=== PATIENT | female | born 1965 | race Caucasian/White ===

== ENCOUNTER 2017-05-25 08:02 | Outpatient (CLI) | payer BC | END 2017-05-25 08:03 | disposition home or self-care (01) | LOC: BICULT 08:02 | PROVIDERS: ATTEND Physician Assistant | DX: R10.11 Right upper quadrant pain (principal); K76.0 Fatty (change of) liver, not elsewhere classified; R16.0 Hepatomegaly, not elsewhere classified | CPT/HCPCS: 76700 ==

== ENCOUNTER 2017-06-26 07:38 | Outpatient (CLI) | payer BC ==
--- NOTE | 2017-06-26 11:47 | NM ---
NUCLEAR MEDICINE HEPATOBILIARY SCAN WITH EJECTION FRACTION: Date: 06/26/17 HISTORY: 51-year-old female with history of right upper quadrant pain, bloating, nausea, and vomiting. FINDINGS: The patient was injected with 5.4 mCi technetium-99m mebrofenin intravenously. There is prompt uptake of the tracer by the liver with excretion into the biliary tree, filling of the gallbladder, and emp tying into the duodenum. At the 1 hour time interval, the patient was given 8 oz of Boost orally. At 30 minutes, ejection fraction was 89%. IMPRESSION: Normal nuclear medicine hepatobiliary scan and normal ejection fraction. POS: [facility]
== END 2017-06-26 07:39 | disposition home or self-care (01) ==
LOC: NM 07:38
PROVIDERS: ATTEND Internal Medicine Gastroenterology
DX: Z12.11 Encounter for screening for malignant neoplasm of colon (principal); K76.0 Fatty (change of) liver, not elsewhere classified; R14.0 Abdominal distension (gaseous); R10.11 Right upper quadrant pain; R11.2 Nausea with vomiting, unspecified; R74.8 Abnormal levels of other serum enzymes
CPT/HCPCS: 78227; A9537

== ENCOUNTER 2017-07-17 07:46 | Outpatient (CLI) | payer BC ==
--- NOTE | 2017-07-17 10:17 | RAD ---
DOUBLE CONTRAST UPPER GI: INDICATION: History of right upper quadrant abdominal pain and hepatic steatosis. TECHNIQUE: Thin barium, thick barium, and effervescent crystals were utilized for a double-contrast upper GI. T otal fluoroscopic time was 4.7 minutes. Total exposure 361.77 mGy. FINDINGS: There were tertiary contractions seen involving the mid to distal esophagus. No esophageal stricture or intraluminal mass is demonstrated. There were normal primary and secondary peristaltic waves of the esophagus. There was mild reflux demonstrated during the examination. There is a small hiatal h ernia. The visualized stomach demonstrated no focal intraluminal mass, stricture, or ulceration. There is slight wall thickening involving the duodenum suspicious for mild duodenitis. No rajwinder ulce ration or stricture was identified. There is a small diverticulum involving the second stage of the duodenum. The duodenal folds otherwise were normal-appearing. IMPRESSION: 1. Mild gastroesophageal reflux. 2. Small hiatal hernia. 3. 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 No rajwinder ulceration, stricture, or mass is identified. 4. Duodenal wall thickening suspicious for duodenitis. POS: [facility]
== END 2017-07-17 07:47 | disposition home or self-care (01) ==
LOC: RAD 07:46
PROVIDERS: ATTEND Internal Medicine Gastroenterology
DX: R10.11 Right upper quadrant pain (principal); K76.0 Fatty (change of) liver, not elsewhere classified; K21.9 Gastro-esophageal reflux disease without esophagitis; K44.9 Diaphragmatic hernia without obstruction or gangrene; K63.89 Other specified diseases of intestine
CPT/HCPCS: 74241

== ENCOUNTER 2017-07-25 09:36 | Outpatient (CLI) | payer OTHER | END 2017-07-25 09:37 | disposition home or self-care (01) | LOC: DTY/OP 09:36 | PROVIDERS: ATTEND Internal Medicine Gastroenterology | DX: K76.0 Fatty (change of) liver, not elsewhere classified (principal); Z71.3 Dietary counseling and surveillance | CPT/HCPCS: 97802 ==

== ENCOUNTER 2017-08-21 16:26 | Outpatient (CLI) | payer BC | END 2017-08-21 16:27 | disposition home or self-care (01) | LOC: BICRAD 16:26 | PROVIDERS: ATTEND Physician Assistant | DX: M25.552 Pain in left hip (principal) ==

== ENCOUNTER 2022-01-01 08:15 | Emergency (ER) | payer OTHER, BC ==
[2022-01-01] MEDS ORDERED: Fentanyl 100 MCG/2 ML VIAL ONE (08:19)
[2022-01-01] MEDS ORDERED: Boostrix 0.5 ML (Tdap) VIAL (>/=7 yrs of age) ONE (08:19)
[2022-01-01 08:32] LABS: #Basophils 0.1 thou/uL (0.0-0.2); #Eosinphils 0.4 thou/uL (0.0-0.7); #Lymphocytes 2.9 thou/uL (1.20-3.40); #Monocytes 0.6 thou/uL (0.11-0.59); #Neutrophils 4.4 thou/uL (1.40-6.50); %Basophils 0.7 % (0.0-1.0); %Eosinophils 4.2 % (0.0-10.0); Hemoglobin 14.4 g/dL (12.0-16.0); Mean Corpuscular HGB CONC 32.7 g/dL (32.0-36.0); Mean Corpuscular Hemoglobin 31.9 pg (27.0-31.0); Mean Corpuscular Volume 97.5 fL (78.0-98.0); Mean Platelet Volume 7.1 fL (7.4-10.4); Platelet Count 295 thou/uL (130-400); RBC Distribution Width 11.4 % (11.5-14.5); Red Blood Cell (RBC) Count 4.52 mill/uL (4.20-5.40); White Blood Cell (WBC) Count 8.3 thou/uL (4.8-10.8)
[2022-01-01] MEDS ORDERED: Iopamidol-370 76% 500 ML 1 ML ONE (08:37)
[2022-01-01 08:40] LABS: INR-International Normal Ratio 0.9; Prothrombin Time 12.3 sec (12.0-14.7)
[2022-01-01 08:43] LABS: ALT (SGPT) 27 U/L (8-55); AST (SGOT) 30 U/L (5-34); Albumin 3.9 g/dL (3.5-5.0); Alkaline Phosphatase 149 U/L (40-110); Anion Gap 14 mmol/L (10-20); BUN (Urea Nitrogen) 18 mg/dL (9.8-20.1); Bilirubin, Total 0.2 mg/dL (0.2-1.2); Calc. Creatinine Clearance 0 mL/min (70-130); Calcium 9.2 mg/dL (7.8-10.44); Carbon Dioxide 23 mmol/L (22-29); Chloride 107 mmol/L (98-107); Estimated GFR 72; Globulin 2.7 g/dL (2.4-3.5); Glucose 132 mg/dL (70-105); Protein, Total 6.6 g/dL (6.0-8.3); Sodium 140 mmol/L (136-145)
== END 2022-01-01 10:50 | disposition home or self-care (01) ==
LOC: ERS 08:15
DX: S22.32XA Fracture of one rib, left side, initial encounter for closed fracture (principal); S42.192A Fracture of other part of scapula, left shoulder, initial encounter for closed fracture; S42.025A Nondisplaced fracture of shaft of left clavicle, initial encounter for closed fracture; S27.0XXA Traumatic pneumothorax, initial encounter; Z23 Encounter for immunization; V89.2XXA Person injured in unspecified motor-vehicle accident, traffic, initial encounter; Y92.410 Unspecified street and highway as the place of occurrence of the external cause
CPT/HCPCS: 70450; 71045; 71260; 72125; 74177; 80053; 85025; 85610; 85730; 90471; 90715; 96374; G0390; J3010; Q9967

== ENCOUNTER 2022-07-24 06:17 | Day surgery (SDC) | payer BC ==
[2022-07-20 11:44] VITALS: BMI 29.1
[2022-07-24] MEDS ORDERED: fentaNYL PF 100 MCG/2 ML SYRINGE ONE (06:42)
[2022-07-24] MEDS ORDERED: Scopolamine 1.5 mg/72 hour Patch ONE (06:44)
[2022-07-24] MEDS ORDERED: CEFAZOLIN 2 GM VIAL ONE (06:44)
[2022-07-24] MEDS ORDERED: Sodium Chloride 0.9% 100 ML ONE (06:44)
[2022-07-24] MEDS ORDERED: Heparin 5,000 UNITS/ML VIAL ONE (06:45)
[2022-07-24] MEDS ORDERED: Midazolam HCl 2 mg/2 ml Vial ONE (07:10)
[2022-07-24] MEDS ORDERED: Vancomycin 1 GM VIAL ONE (07:11)
[2022-07-24] MEDS ORDERED: EPINEPHrine 1 MG/ML AMP ONE (07:11)
[2022-07-24] MEDS ORDERED: Neomycin-Polymyxin 1 ML AMP ONE (07:11)
[2022-07-24] MEDS ORDERED: Bupivacaine/Epinephrine 0.25% 30 ML VIAL ONE (07:11)
[2022-07-24] MEDS ORDERED: Gentamicin 80 MG/2 ML VIAL ONE (07:11)
[2022-07-24] MEDS ORDERED: Lidocaine 1% (PF) 30 ML VIAL ONE (07:11)
[2022-07-24] MEDS ORDERED: PROPOFOL 200 MG/20 ML VIAL ONE (07:38)
[2022-07-24] MEDS ORDERED: ePHEDrine Sulfate 50 MG/10 ML VIAL ONE (07:38)
[2022-07-24] MEDS ORDERED: Ketorolac Tromethamine 30 MG/ML VIAL ONE (07:38)
[2022-07-24] MEDS ORDERED: Lidocaine 1% PF 5 ML VIAL ONE (07:38)
[2022-07-24] MEDS ORDERED: Ondansetron PF 4 MG/2 ML Vial ONE (07:38)
[2022-07-24] MEDS ORDERED: Dexamethasone 20 MG/5 ML VIAL ONE (07:38)
[2022-07-24] MEDS ORDERED: HYDROcodone/Acetaminophen 5/325 mg Tablet ONE (12:25)
== END 2022-07-24 13:40 | disposition home or self-care (01) ==
LOC: SDC 06:17
PROVIDERS: ATTEND Plastic Surgery
PROC: 0HBV0ZZ Excision of Bilateral Breast, Open Approach (ICD-10-PCS; principal; 2022-07-24)
DX: N62 Hypertrophy of breast (principal); E07.9 Disorder of thyroid, unspecified; Z79.1 Long term (current) use of non-steroidal anti-inflammatories (NSAID); Z79.890 Hormone replacement therapy
CPT/HCPCS: 88305; J0171; J1100; J1580; J1644; J1885; J2001; J2250; J2405; J2704; J3370; J3490